=== PATIENT | male | born 1990 | race Two or more races ===

== ENCOUNTER 2017-07-06 19:06 | Emergency (ER) | payer OTHER ==
[~2017-07-06] VITALS: Ht 167.6 cm; Wt 77.1 kg
--- NOTE | 2017-07-06 19:14 | NUR ---
PT BIBRA TO ER BED 14. FOUND SLEEPING BESIDES HIS CAR. PER PARAMEDICS, PT ADMITS TO BEEN USING METH. NO OBVIOUS TRAUMA. PT VERBALLY RESPONDS BUT IS LETHARGIC. PLACED ON MONITOR. STABLE VITALS AT THIS TIME. AWAITINGMD EVAL.
--- NOTE | 2017-07-06 19:15 | NUR ---
DR DOMINGUEZ AT BEDSIDE FOR EVAL.
--- NOTE | 2017-07-06 19:24 | NUR ---
IV LINE STARTED BLOOD DRAWN AND SENT TO LAB.
--- NOTE | 2017-07-06 19:28 | NUR ---
PT TO RADIOLOGY FOR HEAD CT SCAN VIA [facility].
[2017-07-06] MEDS ORDERED: IV NS 0.9% 1,000 ML BAG IV ONE (19:30)
--- NOTE | 2017-07-06 19:49 | NUR ---
RADIOLOGY AT BEDSIDE FOR CHEST XRAY.
[2017-07-06 20:10] LABS: CARBON DIOXIDE 27 mmol/L (21-32); CHLORIDE 107 mmol/L (98-107); GLUCOSE 99 mg/dL (74-106); POTASSIUM 3.6 mmol/L (3.5-5.1); SODIUM SERUM 146 mmol/L (136-145); UREA NITROGEN, BLOOD 12 mg/dL (7-18)
[2017-07-06 20:11] LABS: ALANINE AMINOTRANSFERASE 29 U/L (12-78); ALBUMIN 4.5 g/dL (3.4-5.0); ALKALINE PHOSPHATASE 85 U/L (46-116); ASPARTATE AMINOTRANSFERASE 19 U/L (15-37); BILIRUBIN,DIRECT 0.1 mg/dL (0.0-0.2); BILIRUBIN,TOTAL 0.6 mg/dL (0.2-1.0); TOTAL PROTEIN, SERUM 7.9 g/dL (6.4-8.2); TROPONIN I < 0.017 ng/mL (0.00-0.056)
[2017-07-06 20:22] LABS: BASOPHILS % (AUTO) 0.1 % (0.0-2.0); EOSINOPHILS # (AUTO) 0.2 /CMM (0.0-0.7); EOSINOPHILS % (AUTO) 1.8 % (0.0-6.0); HEMATOCRIT 47 % (39-51); HEMOGLOBIN 16.4 g/dL (13.5-17.5); LYMPHOCYTES # (AUTO) 2.1 /CMM (0.8-4.8); LYMPHOCYTES % (AUTO) 23.8 % (20.0-44.0); MEAN CORPUSCULAR HEMOGLOBIN 29 PG (26.0-33.0); MEAN CORPUSCULAR HGB CONC 35 g/dl (31.0-36.0); MEAN CORPUSCULAR VOLUME 85 fL (80-96); MONOCYTES # (AUTO) 0.6 /CMM (0.1-1.30); MONOCYTES % (AUTO) 7.2 % (2.0-12.0); NEUTROPHILS % (AUTO) 67.1 % (43.0-81.0); PLATELET COUNT (AUTO) 240 /CMM (150-450); RED BLOOD CELL COUNT(AUTO) 5.61 MIL/uL (4.5-6.0); WHITE BLOOD COUNT (AUTO) 8.9 K/uL (4.3-11.0)
[2017-07-06 20:27] LABS: ALCOHOL, BLOOD < 3 mg/dL (0-0)
--- NOTE | 2017-07-06 20:59 | NUR ---
UNABLE TO COLLECT URINE SAMPLE DR ALBERTO MONTERROSO.
--- NOTE | 2017-07-06 23:13 | NUR ---
PT SLEEPING. ON MONITOR W/ STABLE VITALS. WILL CONTINUE TO MONITOR.
--- NOTE | 2017-07-07 01:32 | NUR ---
PT SLEEPING COMFORTABLY LEFT LATERAL ON BED. VSS, NAD NOTED. PT GIVEN BLANKET. ON TANKER DRIVER. WILL CONT TO MONITOR.
[2017-07-07 03:30] VITALS: BP 133/68
--- NOTE | 2017-07-07 03:30 | NUR ---
Patient discharged to brother for transport home in stable condition. Written and verbal after care instructions given. Patient verbalizes understanding of instruction. IV removed. Catheter intact and site benign. Pressure and 4x4 applied to site. No bleeding noted. Pt ambulatory with a steady gait. VSS, NAD noted on DC. Denies complaint on DC.
== END 2017-07-07 03:31 | disposition home or self-care (01) ==
LOC: ER 19:08
DX: R41.82 Altered mental status, unspecified (principal)
CPT/HCPCS: 36415; 70450; 71010; 80048; 80076; 84484; 85025; 93005; 99285; A4606; G0480; J7030; Z7610